=== PATIENT | female | born 1930 | race Two or more races ===

== ENCOUNTER 2017-02-09 12:03 | Inpatient (IN) | payer MEDICARE, OTHER ==
[~2017-02-09] VITALS: Ht 154.9 cm; Wt 59.7 kg
[2017-02-09 15:24] LABS: Basophils # (auto) 0 uL; Basophils % (auto) 0.3 % (0.0-2.0); CONDITION Y; Eosinophils # (auto) 0.1 uL; Eosinophils % (auto) 0.6 % (0.0-7.0); Hematocrit 37.9 % (36.0-46.0); Hemoglobin 12.8 g/dL (12.2-16.2); Lymphocytes # (auto) 1.8 uL; Lymphocytes % (auto) 19.5 % (10.0-50.0); Mean Corpuscular Hemoglobin 29.8 pg (28.0-32.0); Mean Corpuscular Hgb Conc. 33.7 g/dL (32.0-36.0); Mean Corpuscular Volume 88.4 fL (80.0-100.0); Mean Platelet Volume 8.1 fL (7.4-10.4); Monocytes # (auto) 1.1 uL; Monocytes % (auto) 11.9 % (0.0-12.0); Neutrophils # (auto) 6.1 uL; Neutrophils % (auto) 67.7 % (37.0-80.0); Platelet Count (auto) 252 10^3/uL (140-450); Red Cell Distribution Width 14.1 % (11.6-16.0)
[2017-02-09 15:52] LABS: Albumin 3.4 g/dL (3.4-5.0); Alkaline Phosphatase 69 U/L (45-117); Anion Gap 7 (5-15); Aspartate Aminotransferase 9 U/L (15-37); B-Type Natriuretic Peptide 166.82 pg/mL (0-100); BUN/Creatinine Ratio 19.2; Bilirubin, Total 0.5 mg/dL (0.2-1.0); Blood Urea Nitrogen 25 mg/dL (7-18); Calcium 9.8 mg/dL (8.5-10.1); Carbon Dioxide 28 mmol/L (21-32); Chloride 98 mmol/L (98-107); GFR African American 50 mL/min; GFR Non-African American 41 mL/min; Glucose 103 mg/dL (74-106); Potassium 4.3 mmol/L (3.5-5.1); Sodium 133 mmol/L (136-145); Total Protein 7.7 g/dL (6.4-8.2)
[2017-02-09 15:59] LABS: Temperature: 24.3 C (20.0-25.0)
[2017-02-09 17:06] LABS: INR 0.95 (0.9-1.15); Partial Thromboplastin Time 28.3 sec (22.64-33.71); Prothrombin Time 10.4 sec (9.37-12.3)
[2017-02-09 18:22] LABS: Urine Bilirubin Negative (Negative); Urine Blood Negative /uL (Negative); Urine Color Yellow (Yellow); Urine Glucose Normal (Normal); Urine Ketone Negative (Negative); Urine Mucus FEW (None Seen); Urine Nitrite Negative (Negative); Urine RBC <1 /hpf (0 - 4); Urine Squamous Epithelial Cell FEW /hpf (<5); Urine Urobilinogen Normal (Negative); Urine pH 6.5 (5.0-8.0)
[2017-02-09] MEDS ORDERED: cefTRIAXone 1GM/50ML D5W 50 ML IV ONE (19:15)
[2017-02-09] MEDS ORDERED: MORPHINE SULF INJ 2 MG/ML SYRINGE 1ML IV PRN ×2 (19:30)
[2017-02-09] MEDS ORDERED: NITROGLYCERIN 0.4 MG SL TAB SL PRN (19:30)
[2017-02-09] MEDS ORDERED: ONDANSETRON HCL 4 MG/2 ML VIAL IV PRN (19:30)
[2017-02-09] MEDS ORDERED: ACETAMINOPHEN 325 MG TAB PO PRN (19:30)
[2017-02-09] MEDS ORDERED: TEMAZEPAM 15 MG CAP PO PRN (19:30)
[2017-02-09] MEDS ORDERED: POTASSIUM CHL 10 Meq TABLET PO ONE (19:45)
[2017-02-09] MEDS ORDERED: FUROSEMIDE 40 MG/4 ML VIAL IV ONE (19:45)
[2017-02-09] MEDS ORDERED: HYDROcodone-ACET 10/325MG TAB PO ONE (20:15)
[2017-02-09] MEDS: ENOXAPARIN SOD 30 MG/0.3 ML SYRINGE SC SCH (20:23)
[2017-02-09] MEDS: CLINDAMYCIN 300MG IV 50 ML IV SCH (21:45)
[2017-02-09] MEDS: SODIUM CHLOR 0.9% PF (SALINE LOCK) 10ML VIAL IV SCH (22:01)
[2017-02-10 03:00] VITALS: BP 116/63
[2017-02-10] MEDS ORDERED: LEVO75TA50 PO (03:21)
[2017-02-10 05:24] VITALS: BP 134/60
[2017-02-10] MEDS: CLINDAMYCIN 300MG IV 50 ML IV SCH ×2 (06:02→13:37)
[2017-02-10] MEDS: SODIUM CHLOR 0.9% PF (SALINE LOCK) 10ML VIAL IV SCH ×3 (06:02→21:50)
[2017-02-10 06:54] LABS: Basophils # (auto) 0 uL; Basophils % (auto) 0.4 % (0.0-2.0); CONDITION Y; Eosinophils # (auto) 0.1 uL; Eosinophils % (auto) 0.9 % (0.0-7.0); Hematocrit 38.3 % (36.0-46.0); Lymphocytes # (auto) 1.9 uL; Lymphocytes % (auto) 21.6 % (10.0-50.0); Mean Corpuscular Hemoglobin 29.6 pg (28.0-32.0); Mean Corpuscular Hgb Conc. 33.8 g/dL (32.0-36.0); Mean Corpuscular Volume 87.6 fL (80.0-100.0); Mean Platelet Volume 8.3 fL (7.4-10.4); Monocytes # (auto) 1.2 uL; Monocytes % (auto) 13.6 % (0.0-12.0); Neutrophils # (auto) 5.7 uL; Neutrophils % (auto) 63.5 % (37.0-80.0); Platelet Count (auto) 259 10^3/uL (140-450); Red Cell Distribution Width 14.4 % (11.6-16.0)
[2017-02-10 07:42] LABS: Albumin 3.2 g/dL (3.4-5.0); BUN/Creatinine Ratio 17.6; Bilirubin, Total 0.5 mg/dL (0.2-1.0); Calcium 9.8 mg/dL (8.5-10.1); Potassium 4.4 mmol/L (3.5-5.1); Total Protein 7.8 g/dL (6.4-8.2)
[2017-02-10] MEDS: HYDROcodone-ACET 5/325MG TAB PO PRN ×2 (08:17→14:49)
[2017-02-10 09:54] VITALS: BP 151/80
[2017-02-10] MEDS ORDERED: POTASSIUM CHL 10 Meq TABLET PO SCH (10:00)
[2017-02-10] MEDS ORDERED: FUROSEMIDE 40 MG/4 ML VIAL IV SCH (10:00)
[2017-02-10] MEDS: MULTIPLE VITAMIN TAB PO SCH (10:07)
[2017-02-10] MEDS: ENOXAPARIN SOD 30 MG/0.3 ML SYRINGE SC SCH (10:07)
[2017-02-10] MEDS: cefTRIAXone 1GM/50ML D5W 50 ML IV SCH (10:07)
[2017-02-10 12:54] VITALS: BP 106/60
[2017-02-10] MEDS ORDERED: SOD CHL 0.45% 1,000 ML IV SCH (16:15)
[2017-02-10] MEDS: FAMOTIDINE 20 MG TAB PO SCH (16:30)
[2017-02-10 18:10] VITALS: BP 140/70
[2017-02-10] MEDS: methylPREDNISolone SOD SUCC 40 MG/ML VL IV SCH ×2 (18:18→23:54)
[2017-02-10] MEDS ORDERED: INDOMETHACIN 25 MG CAP PO SCH (22:00)
[2017-02-10 22:33] VITALS: BP 139/69
[2017-02-10] MEDS: DOCUSATE SOD 100 MG CAP PO PRN (23:54)
[2017-02-11 05:02] VITALS: BP 130/71
[2017-02-11] MEDS: SODIUM CHLOR 0.9% PF (SALINE LOCK) 10ML VIAL IV SCH ×3 (05:53→21:53)
[2017-02-11] MEDS: methylPREDNISolone SOD SUCC 40 MG/ML VL IV SCH ×4 (05:53→23:42)
[2017-02-11 06:40] LABS: BUN/Creatinine Ratio 19.4; Calcium 9.8 mg/dL (8.5-10.1); Potassium 4.2 mmol/L (3.5-5.1)
[2017-02-11 08:42] VITALS: BP 126/66
[2017-02-11] MEDS: ENOXAPARIN SOD 30 MG/0.3 ML SYRINGE SC SCH (09:52)
[2017-02-11] MEDS: MULTIPLE VITAMIN TAB PO SCH (09:52)
[2017-02-11] MEDS: cefTRIAXone 1GM/50ML D5W 50 ML IV SCH (09:54)
[2017-02-11] MEDS: FAMOTIDINE 20 MG TAB PO SCH (09:54)
[2017-02-11] MEDS: HYDROcodone-ACET 5/325MG TAB PO PRN ×2 (09:54→18:09)
[2017-02-11] MEDS: SOD CHL 0.45% 1,000 ML IV SCH ×2 (11:05→23:42)
[2017-02-11] MEDS: DOCUSATE SOD 100 MG CAP PO PRN (11:11)
[2017-02-11] MEDS ORDERED: FAM20T PO (11:48)
[2017-02-11 12:58] VITALS: BP 139/72
[2017-02-11 17:00] VITALS: BP 138/74
[2017-02-11 21:16] VITALS: BP 148/77
[2017-02-12 04:38] VITALS: BP 162/95
[2017-02-12] MEDS: SODIUM CHLOR 0.9% PF (SALINE LOCK) 10ML VIAL IV SCH ×2 (06:23→14:23)
[2017-02-12 06:33] LABS: BUN/Creatinine Ratio 25.9; Calcium 10.3 mg/dL (8.5-10.1)
[2017-02-12] MEDS: methylPREDNISolone SOD SUCC 40 MG/ML VL IV SCH (06:35)
[2017-02-12 08:47] VITALS: BP 157/81
[2017-02-12] MEDS: cefTRIAXone 1GM/50ML D5W 50 ML IV SCH (09:53)
[2017-02-12] MEDS: HYDROcodone-ACET 5/325MG TAB PO PRN (09:53)
[2017-02-12] MEDS: FAMOTIDINE 20 MG TAB PO SCH (09:54)
[2017-02-12] MEDS: MULTIPLE VITAMIN TAB PO SCH (09:54)
[2017-02-12] MEDS: ENOXAPARIN SOD 30 MG/0.3 ML SYRINGE SC SCH (09:54)
[2017-02-12] MEDS: DOCUSATE SOD 100 MG CAP PO PRN (09:59)
[2017-02-12] MEDS ORDERED: predniSONE 20 MG TAB PO SCH (10:00)
[2017-02-12] MEDS ORDERED: IND25C PO (10:56)
[2017-02-12] MEDS ORDERED: LACTULOSE 20Gm/30ML SOLN PO ONE (11:45)
[2017-02-12 11:58] VITALS: BP 125/64
[2017-02-12] MEDS: SOD CHL 0.45% 1,000 ML IV SCH (12:13)
[2017-02-12] MEDS ORDERED: hydrALAZINE HCL 20 MG/ML VL IV ONE (14:45)
[2017-02-12 15:17] VITALS: BP 154/69
== END 2017-02-12 18:54 | disposition home health service (06) | DRG 291 ==
LOC: ER 12:03 → LDRP 12:04 → TELE 20:51 → TELE-WESTW 23:48
PROVIDERS: ADMIT Internal Medicine; ATTEND Hospitalist
DX: I13.0 Hypertensive heart and chronic kidney disease with heart failure and stage 1 through stage 4 chronic kidney disease, or unspecified chronic kidney disease (principal); I50.43 Acute on chronic combined systolic (congestive) and diastolic (congestive) heart failure; N17.9 Acute kidney failure, unspecified; L03.116 Cellulitis of left lower limb; E87.1 Hypo-osmolality and hyponatremia; N39.0 Urinary tract infection, site not specified; M10.072 Idiopathic gout, left ankle and foot; M66.0 Rupture of popliteal cyst; E03.9 Hypothyroidism, unspecified; N18.3 Chronic kidney disease, stage 3 (moderate); I25.10 Atherosclerotic heart disease of native coronary artery without angina pectoris; Z95.5 Presence of coronary angioplasty implant and graft; Z79.899 Other long term (current) drug therapy
CPT/HCPCS: 36415; 71010; 73610; 76775; 80048; 80053; 81001; 83880; 84443; 84484; 84550; 85025; 85610; 85652; 85730; 86141; 87040; 87086; 93005; 93306; 93971; 96365; 96375; 97116; 97163; 97530; J0696; J2405; J3490